=== PATIENT | male | born 1995 | race Caucasian/White ===

== ENCOUNTER 2025-05-06 10:19 | Emergency (ER) | payer BC, SELFPAY ==
[2025-05-06 10:21] VITALS: BP 158/102
--- NOTE | 2025-05-06 11:07 | ED.GENMED ---
History of Present Illness
General
Chief Complaint: Male Genito-Urinary Symptoms
Time Seen by Provider: 05/06/25 10:59
History of Present Illness
History of Present Illness:
29-year-old male presents to the emergency department for evaluation of nontraumatic right testicular pain for the past 3 days. Denies recent excessive masturbation or sexual course. No dysuria or penile discharge. No fevers or chills. Went to
urgent care earlier today and had a negative urinalysis before being sent here
Review of Systems
Review of Systems
Allergies reviewed?: Yes
All Other Systems: ROS reviewed and negative except as documented in HPI and ROS
Phy Exam
Physical Exam
Physical Exam:
GEN: Well appearing, NAD, WDWN
HEENT: Oral mucosa moist, no scleral icterus
Cardiac: Regular rate
Lung: No respiratory distress, no tachypnea
: Exquisite tenderness to the right hemiscrotum with mild swelling and erythema
MSK: No gross deformity or injuries
Skin: Good color, no pallor or jaundice, no rashes
Neuro: AO x3, moves all extremities freely
Psych: Calm, cooperative
Course
Orders/Labs/Results
Orders:
Orders
05/06/25 10:23
US Scrotum Urgent
Comment:
Reason For Exam: right testicular pain and swelling
05/06/25 11:06
Ketorolac [Toradol] 30 mg IM NOW STA
05/06/25 11:23
Chlamydia/GC by PCR Urgent
[facility] Source: Urine
Specimen Description:
Source:: URINE
Date Specimen was Collected: 05/06/25
Time Specimen was Collected: 11:08
Vital Signs
Initial and Last Documented VS:
Initial Vital Signs
Temp Pulse Resp BP Pulse Ox
98.3 F 95 16 158/102 98
05/06/25 10:21 05/06/25 10:21 05/06/25 10:21 05/06/25 10:21 05/06/25 10:21
Last Documented Vital Signs
Temp Pulse Resp BP Pulse Ox
98.3 F 95 16 158/102 98
05/06/25 10:21 05/06/25 10:21 05/06/25 10:21 05/06/25 10:21 05/06/25 11:07
MDM/Problems Addressed
MDM/Problems Addressed:
Ultrasound consistent with acute epididymitis. GC chlamydia sent however no risk factors given that the patient is monogamous. Will cover with Levaquin
*Pulse Oximetry
SaO2: 98
Oxygen Mode of Delivery: Room air
Patient hypoxic: no
*Critical Care Note
Total Time (30-74mins, 75-104mins- exclusive of procedures): Not Applicable
ED Attending Note
-
Portions of this chart may have been created with voice recognition software.� Occasional wrong word or��sound alike� substitutions may have occurred due to the inherent limitations of voice recognition software.
Discharge Plan
Departure
Patient Disposition: Home (Routine Discharge)
Date of Disposition: 05/06/25
Time of Disposition: 13:23
Patient with high blood pressure during this ER visit?: No
Discharge Problem:
Acute epididymitis
Instructions: Epididymitis and Orchitis
Prescriptions:
New
levofloxacin 500 mg tablet
500 mg PO DAILY Qty: 10 0RF
Referrals:
Lynda Huddleston DO [Family Provider, Family Practice]
Interventions
Interventions:
*General Assessment Last Done: 05/06/25 11:17
*Neglect/Abuse Screening Last Done: 05/06/25 10:22
*ED COVID-19 Vaccine History Last Done: 05/06/25 11:17
*ED Influenza Vaccine History Last Done: 05/06/25 11:17
[facility] Fall Risk Assessment Tool Last Done: 05/06/25 11:17
*Risk Screen - Suicide (C-SSRS) Last Done: 05/06/25 10:22
*Nursing Disposition Last Done: 05/06/25 13:28
ED-Male Genitourinary Assessment Last Done: 05/06/25 11:17
Discharge Date and Time
Discharge Date/Time: 05/06/25 13:31
Print Language: EMIRATI
[2025-05-06] MEDS: TORADOL 30 MG IM (11:11)
[2025-05-06 11:17] VITALS: BMI 31.6
== END 2025-05-06 13:31 | disposition home or self-care (01) ==
LOC: EMR 10:19
PROVIDERS: EMERGENCY PHYSICIAN Emergency Medicine; FAMILY PHYSICIAN Family Medicine
DX: N45.1 Epididymitis (principal)
CPT/HCPCS: 99284; 96372; 76870; 87491; 87591; 93976